=== PATIENT | female | born 1975 | race Caucasian/White ===

== ENCOUNTER 2016-07-18 08:08 | Emergency (ER) | payer OTHER ==
[2016-07-18 08:48] LABS: BILIRUBIN 2+ mg/dL (NEGATIVE); BLOOD 2+ Ery/uL (NEGATIVE); CLARITY CLEAR (CLEAR); COLOR YELLOW (YELLOW); GLUCOSE (U) 1+ mg/dL (NORMAL); KETONE (U) TRACE mg/dL (NEGATIVE); LEUKOCYTES 2+ Leu/uL (NEGATIVE); NITRITE POSITIVE (NEGATIVE); PROTEIN 3+ mg/dL (NEGATIVE); SPECIFIC GRAVITY 1.025 (1.001-1.030)
[2016-07-18 08:49] LABS: BACTERIA 2+; MUCOUS LARGE; SQUAMOUS EPITHELIAL CELLS RARE; STARCH GRANULES PRESENT
== END 2016-07-18 09:09 | disposition home or self-care (01) ==
LOC: FER 08:08
PROVIDERS: Emergency Medicine
DX: N39.0 Urinary tract infection, site not specified (principal); Z90.710 Acquired absence of both cervix and uterus
CPT/HCPCS: 81001; 87076; 87088; 87186; 99283

== ENCOUNTER 2016-07-26 09:14 | Emergency (ER) | payer OTHER | END 2016-07-26 10:31 | disposition home or self-care (01) | LOC: FER 09:14 | DX: J06.9 Acute upper respiratory infection, unspecified (principal); F32.9 Major depressive disorder, single episode, unspecified; F41.9 Anxiety disorder, unspecified; F17.210 Nicotine dependence, cigarettes, uncomplicated; Z79.899 Other long term (current) drug therapy | CPT/HCPCS: 99283 ==